=== PATIENT | male | born 1960 | race Caucasian/White ===

== ENCOUNTER → 2016-10-04 | Outpatient (CLI) | payer OTHER | LOC: YCFC.O 11:30 | PROVIDERS: ATTEND Nurse Practitioner Family | DX: R73.01 Impaired fasting glucose (principal); B18.2 Chronic viral hepatitis C; I10 Essential (primary) hypertension; I66.9 Occlusion and stenosis of unspecified cerebral artery ==

== ENCOUNTER 2016-11-28 16:34 | Emergency (ER) | payer OTHER ==
[2016-11-28] MEDS ORDERED: LORazepam 0.5 MG TAB PO ONE (16:44)
--- NOTE | 2016-11-28 16:44 | ED.PDOC ---
History of Present Illness - General Chief Complaint: Behavioral / Psych Stated Complaint: Patient is suicidal Time Seen by Provider: 11/28/16 16:42 Source: patient, RN notes reviewed, Vital Signs reviewed Exam Limitations: no limitations - History of Present Illness Initial Comments: Patient has a long history of drug use and is coming down off of Meth. He says if we don't get him to rehab today he is going to kill himself. He is here for medical clearance so he can be admitted to [facility] for psychiatric care and drug treatment. Timing/Duration: getting worse, other - Months Severity: severe Associated Symptoms: suicidal ideation Allergies/Adverse Reactions: Allergies Butorphanol [From Stadol] Allergy (Intermediate, Verified 10/22/12 08:30) Morphine Allergy (Intermediate, Verified 10/22/12 08:30) Home Medications: Ambulatory Orders Amlodipine Besylate [Norvasc] 10 mg PO DAILY 09/24/12 Aspirin-Dipyridamole [Aggrenox] 1 tablet PO BID 09/24/12 Clonidine HCl 0.1 mg PO BID 09/24/12 Duloxetine HCl [Cymbalta] 60 mg PO DAILY 09/24/12 Gabapentin [Neurontin] 600 mg PO TID 09/24/12 HYDROcodone 10MG/APAP 325MG [[place] 10/325] 1 - 2 tablet PO Q4-6H PRN 09/24/12 Milnacipran HCl [Savella] 50 mg PO BID 09/24/12 ALPRAZolam [Xanax] 1 mg PO TID 10/16/12 Buspirone HCl 10 mg PO BID 10/16/12 Khhxgemucm-Afeqakynbhvis-Asasq [Butalbital/Acetaminophen/ 50-325-40 mg] 1 tab PO PRN 12/29/13 Hydrochlorothiazide 12.5 mg PO DAILY 12/29/13 Losartan Potassium & Hydrochlo [Losartan Potassium/Hydroc 100-12.5 mg] 1 tab PO DAILY 12/29/13 Zolpidem Tartrate [Ambien] 10 mg PO HS 12/29/13 Acetaminophen W/ Codeine [Tylenol w/Codeine 300-30 mg] 1 tab PO Q6-8H PRN #15 tab 12/11/14 Mupirocin 2 % Oint [Bactroban Oint] 2 % EX BID #1 tube 12/14/14 Sulfa/Trimeth 800/160 (Ds) Tab [Bactrim DS Tab] 1 ea PO BID #20 tab 12/14/14 Review of Systems - Review of Systems Constitutional: States: no symptoms reported EENTM: States: no symptoms reported Respiratory: States: no symptoms reported Cardiology: States: no symptoms reported Gastrointestinal/Abdominal: States: no symptoms reported Genitourinary: States: no symptoms reported Musculoskeletal: States: no symptoms reported Skin: States: no symptoms reported Neurological: States: no symptoms reported Endocrine: States: no symptoms reported Hematologic/Lymphatic: States: no symptoms reported Past Medical History (General) - Patient Medical History Hx Stroke: Yes Hx Congestive Heart Failure: No Hx Hypertension: Yes Hx Diabetes: No - Vaccination History Hx Tetanus, Diphtheria Vaccination: Yes Hx Influenza Vaccination: Yes Hx Pneumococcal Vaccination: No - Social History Hx Tobacco Use: No Hx Alcohol Use: No Hx Substance Use: Yes - marijuana - Female History Patient : No Family Medical History - Family History Mother Family History: Unknown Physical Exam - Physical Exam General Appearance: Agitated, Anxious, Restless, Unkempt, Well Developed, Well Hydrated, Well Nourished Neck: non-tender, full range of motion, supple, normal inspection Respiratory: chest non-tender, lungs clear, normal breath sounds, no respiratory distress Cardiovascular/Chest: regular rate, rhythm, no edema, no gallop, no JVD, no murmur Extremities Exam: non-tender, normal range of motion, no evidence of injury Neurological: alert, oriented x 3, agitated, anxious Appearance: appropriate insight, no memory impairment, disheveled Behavior/Eye Contact/Speech: good eye contact, increased rate of speech, belligerent Thoughts/Hallucinations: normal thought pattern, no apparent hallucination Skin Exam: normal color, warm/dry Progress - Results/Orders Results/Orders: Vital Signs - 24 hr 11/28/16 16:34 Temperature 98.8 F Pulse Rate [ 72 Left Radial] Respiratory 22 Rate Blood Pressure 165/97 [Right Arm] O2 Sat by Pulse 100 Oximetry Laboratory Tests 11/28/16 11/28/16 16:50 17:31 WBC 11.8 H RBC 5.21 Hgb 15.4 Hct 45.5 MCV 87.4 MCH 29.6 MCHC 33.8 RDW 14.6 H Plt Count 291 MPV 7.7 Absolute Neuts (auto) 8.50 H Absolute Lymphs (auto) 1.70 Absolute Monos (auto) 1.20 H Absolute Eos (auto) 0.30 Absolute Basos (auto) 0.10 Neutrophils % 71.9 Lymphocytes % 14.6 L Monocytes % 10.1 H Eosinophils % 2.3 Basophils % 1.1 Sodium 142 Potassium 3.7 Chloride 106 Carbon Dioxide 27 Anion Gap 12.7 BUN 24 H Creatinine 1.67 H BUN/Creatinine Ratio 14.4 Random Glucose 113 H Serum Osmolality 288.0 Calcium 9.6 Total Bilirubin 1.0 AST 21 ALT 17 Alkaline Phosphatase 83 Serum Total Protein 7.9 Albumin 4.6 Globulin 3.3 Albumin/Globulin Ratio 1.4 Urine Color Yellow Urine Appearance Cloudy Urine pH 5.5 Ur Specific [place] 1.025 Urine Protein 30 Urine Glucose (UA) Negative Urine Ketones Trace Urine Blood Negative Urine Nitrite Negative Urine Bilirubin Negative Urine Urobilinogen 0.2 Ur Leukocyte Esterase Negative Urine RBC 0-1 Urine WBC 1-3 Ur Epithelial Cells 1-3 Amorphous Sediment 2+ Urine Bacteria Rare Hyaline Casts 0-1 Fine Granular Casts 0-1 Urine Mucus Small Urine Opiates Screen Negative Urine Barbiturates Negative Ur Phencyclidine Scrn Negative U Amphetamin/Meth Scrn Positive H U Benzodiazepines Scrn Negative U Cocaine Metab Screen Negative U Cannabinoids Screen Positive H Departure - Departure Clinical Impression: Suicidal ideations, Methamphetamine abuse, Marijuana abuse Time of Disposition: 20:23 Disposition: Transfer to [facility] Condition: Fair Referrals: [Primary Care Provider] - 1-2 Weeks Home Medications: Ambulatory Orders Amlodipine Besylate [Norvasc] 10 mg PO DAILY 09/24/12 Aspirin-Dipyridamole [Aggrenox] 1 tablet PO BID 09/24/12 Clonidine HCl 0.1 mg PO BID 09/24/12 Duloxetine HCl [Cymbalta] 60 mg PO DAILY 09/24/12 Gabapentin [Neurontin] 600 mg PO TID 09/24/12 HYDROcodone 10MG/APAP 325MG [[place] 10/325] 1 - 2 tablet PO Q4-6H PRN 09/24/12 Milnacipran HCl [Savella] 50 mg PO BID 09/24/12 ALPRAZolam [Xanax] 1 mg PO TID 10/16/12 Buspirone HCl 10 mg PO BID 10/16/12 Bbqxeigjjw-Uqqgjzimixent-Xeiqt [Butalbital/Acetaminophen/ 50-325-40 mg] 1 tab PO PRN 12/29/13 Hydrochlorothiazide 12.5 mg PO DAILY 12/29/13 Losartan Potassium & Hydrochlo [Losartan Potassium/Hydroc 100-12.5 mg] 1 tab PO DAILY 12/29/13 Zolpidem Tartrate [Ambien] 10 mg PO HS 12/29/13 Acetaminophen W/ Codeine [Tylenol w/Codeine 300-30 mg] 1 tab PO Q6-8H PRN #15 tab 12/11/14 Mupirocin 2 % Oint [Bactroban Oint] 2 % EX BID #1 tube 12/14/14 Sulfa/Trimeth 800/160 (Ds) Tab [Bactrim DS Tab] 1 ea PO BID #20 tab 12/14/14 Transfer to Outside Facility - Transfer Information Accepting Provider:: Dr. Gutierrez Accepting Facility: [facility] Reason for Transfer: specialized care not available
[2016-11-28 20:59] VITALS: BP 150/88; TEMP 98.7; O2SAT 95
== END 2016-11-28 20:40 ==
LOC: ER 16:34
DX: R45.851 Suicidal ideations (principal); F15.10 Other stimulant abuse, uncomplicated; F12.10 Cannabis abuse, uncomplicated; I10 Essential (primary) hypertension; Z86.73 Personal history of transient ischemic attack (TIA), and cerebral infarction without residual deficits; Z79.899 Other long term (current) drug therapy; Z79.82 Long term (current) use of aspirin; Z88.6 Allergy status to analgesic agent; Z88.8 Allergy status to other drugs, medicaments and biological substances
CPT/HCPCS: 36415; 80053; 80307; 81001; 85025; J2060